=== PATIENT | male | born 1975 | race African-American/Black ===

== ENCOUNTER 2023-12-01 17:52 | Emergency (ER) | payer MEDICAID ==
[~2023-12-01] VITALS: Ht 180.3 cm; Wt 91.2 kg
[2023-12-01 18:00] VITALS: BP_SYST 110; PULSE 64; RESP 18; TEMP 98.3; O2SAT 98
[2023-12-01] MEDS ORDERED: NAPR-1172 PO (18:36)
[2023-12-01 18:43] VITALS: BP_SYST 110; PULSE 64; RESP 18; TEMP 98.3; O2SAT 98
== END 2023-12-01 18:42 | disposition home or self-care (01) ==
LOC: SED 17:52
DX: S83.91XA Sprain of unspecified site of right knee, initial encounter (principal); X58.XXXA Exposure to other specified factors, initial encounter; Y93.89 Activity, other specified; Y92.89 Other specified places as the place of occurrence of the external cause; Y99.8 Other external cause status
CPT/HCPCS: 73564; 99283